=== PATIENT | female | born 2000 | race Caucasian/White ===

== ENCOUNTER 2021-01-28 20:22 | Emergency (ER) | payer OTHER, SELFPAY ==
--- NOTE | 2021-01-28 22:39 | EDPHYS ---
Physician Documentation [facility] Name: Arleth Crowley Age: 20 yrs Sex: Female : 2000 Arrival Date: 01/28/2021 Time: 20:25 Bed DX1 Private MD: ED Physician Norm Marr HPI: 01/28 22:32 This 20 yrs old Female presents to ER via Ambulatory with complaints of mh7 Allergic Reaction, Rash. 22:32 The patient presents with itching, rash, of the right arm, left arm, right leg and left mh7 leg. Onset: The symptoms/episode began/occurred 1 week(s) ago. Associated signs and symptoms: Pertinent positives: rash, Pertinent negatives: abdominal pain, Altered mental status chest pain, dysphagia, fever, headache, hives, Light headed nausea, shortness of breath, swelling, Syncope vomiting. Possible causes: poison kay. At home the patient or guardian has treated the symptoms with Claritin, topical steroids. Severity of symptoms: At their worst the symptoms were mild 3 day(s) ago, in the emergency department the symptoms are unchanged. 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 - Social history:: Smoking status: Patient denies any tobacco usage or history of. ROS: 22:32 Constitutional: Negative for fever, chills, and weight loss, Eyes: Negative for injury, mh7 pain, redness, and discharge, ENT: Negative for injury, pain, and discharge, Neck: Negative for injury, pain, and swelling, Cardiovascular: Negative for chest pain, palpitations, and edema, Respiratory: Negative for shortness of breath, cough, wheezing, and pleuritic chest pain, Abdomen/GI: Negative for abdominal pain, nausea, vomiting, diarrhea, and constipation, Back: Negative for injury and pain, : Negative for injury, bleeding, discharge, and swelling, MS/Extremity: Negative for injury and deformity. 22:32 Neuro: Negative for headache, weakness, numbness, tingling, and seizure, Psych: Negative for depression, anxiety, suicide ideation, homicidal ideation, and hallucinations, Allergy/Immunology: Negative for hives, rash, and allergies, Endocrine: Negative for neck swelling, polydipsia, polyuria, polyphagia, and marked weight changes, Hematologic/Lymphatic: Negative for swollen nodes, abnormal bleeding, and unusual bruising. 22:32 Skin: Exam: 22:32 Constitutional: This is a well developed, well nourished patient who is awake, alert, mh7 and in no acute distress. Head/Face: Normocephalic, atraumatic. Eyes: Pupils equal round and reactive to light, extra-ocular motions intact. Lids and lashes normal. Conjunctiva and sclera are non-icteric and not injected. Cornea within normal limits. Periorbital areas with no swelling, redness, or edema. Neck: Trachea midline, no thyromegaly or masses palpated, and no cervical lymphadenopathy. Supple, full range of motion without nuchal rigidity, or vertebral point tenderness. No Meningismus. Chest/axilla: Normal chest wall appearance and motion. Nontender with no deformity. No lesions are appreciated. Cardiovascular: Regular rate and rhythm with a normal S1 and S2. No gallops, murmurs, or rubs. Normal PMI, no JVD. No pulse deficits. Respiratory: Lungs have equal breath sounds bilaterally, clear to auscultation and percussion. No rales, rhonchi or wheezes noted. No increased work of breathing, no retractions or nasal flaring. Abdomen/GI: Soft, non-tender, with normal bowel sounds. No distension or tympany. No guarding or rebound. No evidence of tenderness throughout. Back: No spinal tenderness. No costovertebral tenderness. Full range of motion. 22:32 MS/ Extremity: Pulses equal, no cyanosis. Neurovascular intact. Full, normal range of motion. Neuro: Awake and alert, GCS 15, oriented to person, place, time, and situation. Cranial nerves II-XII grossly intact. Motor strength 5/5 in all extremities. Sensory grossly intact. Cerebellar exam normal. Normal gait. Psych: Awake, alert, with orientation to person, place and time. Behavior, mood, and affect are within normal limits. 22:32 Skin: rash a mild rash is noted, rash can be described as contact dermatitis, on the right arm, left arm, right leg and left leg. Vital Signs: 20:48 BP 146 / 57; Pulse 98; Resp 20; Temp 99.1(TE); Pulse Ox 100% on R/A; Weight 93.89 kg kg (R); Height 5 ft. 5 in. (165.10 cm) (R); Pain 1/10; 22:39 BP 132 / 65; Pulse 80; Resp 17; Temp 98.9; Pulse Ox 100% on R/A; ch4 20:48 Body Mass Index 34.45 (93.89 kg, 165.10 cm) kg MDM: 22:32 Differential diagnosis: non IgE mediated drug reaction urticaria, Contact dermatitis, mh7 pruritus, poison kay, poison oak. Data reviewed: vital signs, nurses notes. Data interpreted: Pulse oximetry: on room air is 100 %. Interpretation: normal. 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 Response to treatment: the patient's symptoms have mildly improved after treatment. 22:39 Patient medically screened. [facility] Administered Medications: 22:31 Drug: predniSONE 60 mg Route: PO; ch4 22:31 Drug: Pepcid (famotidine) 20 mg Route: PO; ch4 Disposition Summary: 01/28/21 22:39 Discharge Ordered Location: Home [facility] Problem: new 7 Symptoms: have improved mh7 Condition: Stable mh7 Diagnosis - Unspecified contact dermatitis due to plants, except food mh7 Followup: mh7 - With: Private Physician - When: 1 - 2 days - Reason: Worsening of condition, Recheck today's complaints, Continuance of care, Re-evaluation by your physician Followup: 7 - With: Omar Roach MD - When: 1 - 2 days - Reason: Worsening of condition, Recheck today's complaints Discharge Instructions: - Discharge Summary Sheet 7 - Poison Kay Dermatitis, [id number] mh7 - Contact Dermatitis, [id number] [facility] Forms: - Medication Reconciliation Form [facility] - Thank You Letter [facility] - Antibiotic Education [facility] - Prescription Opioid Use [facility] Prescriptions: - Pepcid 20 mg Oral Tablet - take 1 tablet by ORAL route every 12 hours for 5 days; 10 tablet; Refills: 0, [facility] Product Selection Permitted - Prednisone 20 mg Oral Tablet - take 2 tablets by ORAL route once daily for 5 days; 10 tablet; Refills: 0, [facility] Product Selection Permitted Signatures: Norm Marr MD MD 7 Destiny Castorena, RN RN kg Barbara Obrien, RONEN RN ch4
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
[2021-01-28] MEDS ORDERED: FAMOTIDINE 20 MG TAB ONE (22:56)
[2021-01-28] MEDS ORDERED: predniSONE 20 MG TAB ONE (22:56)
[2021-01-29 00:34] VITALS: O2SAT 100
[2021-01-29 00:35] VITALS: BP 132/65; TEMP 98.9
== END 2021-01-28 22:45 | disposition home or self-care (01) ==
LOC: ER 20:22
DX: L25.5 Unspecified contact dermatitis due to plants, except food (principal)
CPT/HCPCS: 99283; J7512

== ENCOUNTER 2022-09-20 18:11 | Emergency (ER) | payer OTHER ==
--- NOTE | 2022-09-20 18:34 | ER ---
Nurse's Notes [facility] Name: Arleth Crowley Age: 22 yrs Sex: Female : 2000 Arrival Date: 09/20/2022 Time: 18:11 Bed IW1 Private MD: Diagnosis: Other acute conjunctivitis Presentation: 09/20 18:28 Chief complaint: Patient states: Eyes feeling irritated/itching since monday. nj1 Coronavirus screen: Vaccine status: Patient reports being unvaccinated. Ebola Screen: Patient denies travel to an Ebola-affected area in the 21 days before illness onset. Initial Sepsis Screen: Does the patient meet any 2 criteria?. Initial Sepsis Screen: Does the patient have a suspected source of infection? No. Patient's initial sepsis screen is negative. Risk Assessment: Do you want to hurt yourself or someone else? Patient reports no desire to harm self or others. Onset of symptoms was September 16, 2022. 18:28 Method Of Arrival: Ambulatory [facility] 18:28 Acuity: BEATRIZ 5 nj1 Triage Assessment: 18:30 General: Appears in no apparent distress. comfortable, Behavior is calm, cooperative, nj1 appropriate for age. 18:30 Pain: Denies pain. EENT: Sclera/Cornea are reddened in outer aspect of conjuctiva of nj1 right eye, inner aspect of conjuctiva of right eye, outer aspect of conjuctiva of left eye and inner aspect of conjunctiva of left eye Denies Vision problems. Neuro: Level of Consciousness is awake, alert, obeys commands, Oriented to person, place, time, situation. Cardiovascular: Patient's skin is warm and dry. Respiratory: Airway is patent Respiratory effort is even, unlabored, labored. Historical: - Allergies: 18:32 No Known Allergies; nj1 - PMHx: 18:32 None; nj1 - PSHx: 18:32 section; nj1 - Immunization history:: Client reports having NOT received the Covid vaccine. - Social history:: Smoking status: Patient denies any tobacco usage or history of. Vital Signs: 18:28 BP 146 / 86; Pulse 88; Resp 16; Pulse Ox 100% on R/A; Weight 92.99 kg; Height 5 ft. 5 nj1 in. ; Pain 5/10; 18:28 Body Mass Index 34.11 (92.99 kg, 165.1 cm) [facility] 18:28 Pain Scale: Adult [facility] ED Course: 18:21 Patient arrived in ED. [facility] 18:25 Everardo Morales PA is PHCP. [facility] 18:25 Genaro Brumfield DO is Attending Physician. [facility] 18:32 Triage completed. nv1 18:33 Arm band placed on left wrist. [facility] 18:34 Jose De La Vega MD is Referral Physician. [facility] 18:50 Patient did not have IV access during this emergency room visit. [facility] Administered Medications: No medications were administered Outcome: 18:34 Discharge ordered by . [facility] 18:50 Discharged to home ambulatory. [facility] 18:50 Condition: stable 18:50 Discharge instructions given to patient, Instructed on discharge instructions, follow up and referral plans. medication usage, Demonstrated understanding of instructions, follow-up care, medications, Prescriptions given X 1. 19:07 Patient left the ED. [facility] Signatures: Everardo Morales PA PA [facility] Funmilayo Moe [facility] Mary Kate Sma, RN RN [facility] Corrections: (The following items were deleted from the chart) 18:33 18:28 Pulse 88bpm; Resp 16bpm; Pulse Ox 100% RA; 92.99 kg; Height 5 ft. 5 in.; BMI: [facility] 34.1; Pain 5/10, Adult; [facility]
--- NOTE | 2022-09-20 18:35 | EDPHYS ---
Physician Documentation [facility] Name: Arleth Crowley Age: 22 yrs Sex: Female : 2000 Arrival Date: 09/20/2022 Time: 18:11 Bed IW1 Private MD: ED Physician Genaro Brumfield HPI: 09/20 18:31 This 22 yrs old Female presents to ER via Unassigned with complaints of Eye Problem. jmm 18:31 Onset: The symptoms/episode began/occurred gradually, 1 week(s) ago. Duration: the [facility] symptoms are continuous. Aggravated by nothing. Alleviated by nothing. This is a 22 year old female with no chronic medical conditions that presents to the ED with complaints of bilateral eye irritation and drainage. Began in the left eye and spread to the right. . Historical: - Allergies: 18:32 No Known Allergies; nj1 - PMHx: 18:32 None; nj1 - PSHx: 18:32 section; nj1 - Immunization history:: Client reports having NOT received the Covid vaccine. - Social history:: Smoking status: Patient denies any tobacco usage or history of. ROS: 18:31 Constitutional: Negative for fever, chills, and weight loss. jmm 18:31 ENT: Negative for injury, pain, and discharge, Neck: Negative for injury, pain, and swelling, Cardiovascular: Negative for chest pain, palpitations, and edema, Respiratory: Negative for shortness of breath, cough, wheezing, and pleuritic chest pain, Abdomen/GI: Negative for abdominal pain, nausea, vomiting, diarrhea, and constipation, Back: Negative for injury and pain, Skin: Negative for injury, rash, and discoloration, Neuro: Negative for headache, weakness, numbness, tingling, and seizure. 18:31 Eyes: Positive for discharge, itching, redness, tearing, Negative for vision loss, visual disturbance. 18:31 All other systems are negative. Exam: 18:31 Constitutional: This is a well developed, well nourished patient who is awake, alert, jmm and in no acute distress. Head/Face: atraumatic. 18:31 ENT: Moist Mucus Membranes Neck: Trachea midline, Supple Chest/axilla: Normal chest wall appearance and motion. Cardiovascular: Regular rate and rhythm. No edema appreciated Respiratory: Normal respirations, no respiratory distress appreciated Abdomen/GI: Non distended Back: Normal ROM Skin: General appearance color normal 18:31 Eyes: Conjunctiva: injected, bilaterally. 18:31 Musculoskeletal/extremity: ROM: intact in all extremities. 18:31 Skin: Appearance: Color: normal in color. 18:31 Neuro: Orientation: is normal, Mentation: is normal, Memory: is normal. 18:31 Psych: Behavior/mood is pleasant, cooperative. Vital Signs: 18:28 BP 146 / 86; Pulse 88; Resp 16; Pulse Ox 100% on R/A; Weight 92.99 kg; Height 5 ft. 5 nj1 in. ; Pain 5/10; 18:28 Body Mass Index 34.11 (92.99 kg, 165.1 cm) banner 18:28 Pain Scale: Adult nj1 MDM: 18:27 Patient medically screened. [facility] 18:33 Differential diagnosis: Data reviewed: vital signs, nurses notes. Counseling: I had a [facility] detailed discussion with the patient and/or guardian regarding: the historical points, exam findings, and any diagnostic results supporting the discharge/admit diagnosis, the need for outpatient follow up, to return to the emergency department if symptoms worsen or persist or if there are any questions or concerns that arise at home. Administered Medications: No medications were administered Disposition: 20:31 Co-signature as Attending Physician, Genaro Brumfield DO I was immediately available on-site ms3 in the Emergency Department for consultation in the care of the patient. Disposition Summary: 09/20/22 18:34 Discharge Ordered Location: Home [facility] Condition: Stable [facility] Diagnosis - Other acute conjunctivitis [facility] Followup: [facility] - With: Jose De La Vega MD - When: 2 - 3 days - Reason: Recheck today's complaints, Continuance of care, Re-evaluation by your physician Discharge Instructions: - Discharge Summary Sheet [facility] - Bacterial Conjunctivitis, Adult [facility] Forms: - Medication Reconciliation Form [facility] - Thank You Letter [facility] - Antibiotic Education [facility] - Prescription Opioid Use [facility] Prescriptions: - Erythromycin 5 mg/gram (0.5 %) Ophthalmic Ointment - apply 1 centimeter by OPHTHALMIC route 2-3 times daily for 7 days; 1 unit; [facility] Refills: 0, Product Selection Permitted Signatures: Everardo Morales PA PA jmm Sims, Marcus DO DO ms3 Mary Kate Sam, RN RN nj1
[2022-09-20 19:11] VITALS: BP 146/86; O2SAT 100
== END 2022-09-20 19:07 | disposition home or self-care (01) ==
LOC: ER 18:11
DX: H10.33 Unspecified acute conjunctivitis, bilateral (principal)
CPT/HCPCS: 99283

== ENCOUNTER 2025-02-10 16:58 | Emergency (ER) | payer OTHER, SELFPAY ==
[2025-02-10] MEDS ORDERED: KETOROLAC 30 MG/ML INJ ONE (17:12)
[2025-02-10] MEDS ORDERED: DIPHENHYDRAMINE 50 MG/ML VIAL ONE (17:12)
[2025-02-10] MEDS ORDERED: METOCLOPRAMIDE 10 MG/2mL INJ ONE (17:12)
[2025-02-10] MEDS ORDERED: NA CHLORIDE 0.9% 1,000 ML ONE (17:13)
[2025-02-10 18:56] LABS: Absolute Lymphocytes (CBC) 1.4 K/uL (0.7-4.9); Hematocrit 43.0 % (36.0-45.0); Hemoglobin 14.5 g/dL (12.0-15.0); MCH 28.9 pg (27.0-35.0); MCHC 33.6 g/dL (32.0-36.0); MCV 85.8 fL (80-100); MPV 9.1 fL (7.6-11.3); Nucleated RBC Absolute Count 0.0 (0-0); Nucleated Red Blood Cells % 0.0 % (0-0); RBC Red Blood Cell Count 5.01 M/uL (3.86-4.86); White Blood Count 14.00 thou/uL (4.3-10.9)
[2025-02-10 19:10] LABS: Anion Gap 7.9 mEq/L (5.0-15.0); BUN Blood Urea Nitrogen 7.0 mg/dL (7-18); Glucose Level 95.0 mg/dL (74-106); Potassium 3.9 mEq/L (3.5-5.1)
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
--- NOTE | 2025-02-10 19:45 | ER ---
Nurse's Notes [facility] Name: Arleth Crowely Age: 24 yrs Sex: Female : 2000 Arrival Date: 02/10/2025 Time: 16:58 Bed 16 Private MD: Diagnosis: Nausea with vomiting, unspecified;Headache Presentation: 02/10 17:07 Chief complaint: Patient states: migraine started this morning then started having me1 abdominal cramps and n/v. Abd pain is relieved by vomiting. RIOS pain level is 8/10. Coronavirus screen: Vaccine status: Patient reports being unvaccinated. Ebola Screen: No symptoms or risks identified at this time. Initial Sepsis Screen: Does the patient meet any 2 criteria? No. Patient's initial sepsis screen is negative. Does the patient have a suspected source of infection? No. Patient's initial sepsis screen is negative. Risk Assessment: Do you want to hurt yourself or someone else? Patient reports no desire to harm self or others. Onset of symptoms was February 10, 2025 at 09:30. 17:07 Method Of Arrival: Ambulatory [facility] [place] 17:07 Acuity: BEATRIZ 3 me1 CAN PATCHER: 20:07 Not kj2 Historical: - Allergies: 17:09 No Known Allergies; me1 - PMHx: 17:09 None; me1 - PSHx: 17:09 section; me1 - Immunization history:: Adult Immunizations up to date. - Infectious Disease History:: Denies. - Social history:: Smoking status: Reported history of juuling and/or vaping. Screenin:45 [facility] ED Fall Risk Assessment (Adult) History of falling in the last 3 months, kj2 including since admission No falls in past 3 months (0 pts) Confusion or Disorientation No (0 pts) Intoxicated or Sedated No (0 pts) Impaired Gait No (0 pts) Mobility Assist Device Used No (0 pt) Altered Elimination No (0 pt) Score/Fall Risk Level 0 - 2 = Low Risk Maintained a safe environment, Hourly rounding (assess needs \T\ fall precautionary measures) done. Abuse screen: Denies threats or abuse. Denies injuries from another. Nutritional screening: No deficits noted. Tuberculosis screening: No symptoms or risk factors identified. Assessment: 17:45 General: Appears in no apparent distress. Behavior is calm, cooperative. Pain: kj2 Complains of pain in abdomen Pain currently is 5 out of 10 on a pain scale. Neuro: Level of Consciousness is awake, alert, obeys commands, Oriented to person, place, time, situation. Cardiovascular: Patient's skin is warm and dry. Respiratory: Airway is patent Respiratory effort is unlabored. : No signs and/or symptoms were reported regarding the genitourinary system. 18:45 Reassessment: Patient appears in no apparent distress at this time. Patient and/or kj2 family updated on plan of care and expected duration. Pain level reassessed. Patient is alert, oriented x 3, equal unlabored respirations, skin warm/dry/pink. 18:50 GI: Bowel sounds present X 4 quads. Abd is non tender X 4 quads. kj2 19:50 Reassessment: Patient appears in no apparent distress at this time. Patient and/or kj2 family updated on plan of care and expected duration. Pain level reassessed. Patient is alert, oriented x 3, equal unlabored respirations, skin warm/dry/pink. Vital Signs: 17:07 BP 141 / 71; Pulse 76; Resp 18; Temp 98; Pulse Ox 100% ; Weight 83.91 kg; Height 5 ft. me1 6 in. ; Pain 8/10; 18:00 BP 120 / 64; Pulse 60; Resp 20; Pulse Ox 99% ; kj2 19:00 BP 119 / 62; Pulse 60; Resp 18; Pulse Ox 98% on R/A; kj2 19:50 BP 121 / 66; Pulse 62; Resp 20; Temp 98; Pulse Ox 100% ; kj2 17:07 Body Mass Index 29.86 (83.91 kg, 167.64 cm) me1 17:07 Pain Scale: Adult tn1 ED Course: 17:02 Patient arrived in ED. al6 17:02 Michelle James PA-C is [facility]. sb4 17:02 Floresita Pratt MD is Attending Physician. sb4 17:09 Daya Sharp, RONEN is Primary Nurse. kj2 17:09 Triage completed. me1 17:09 Arm band placed on Patient placed in an exam room. me1 17:35 Inserted saline lock: 22 gauge in right forearm, using aseptic technique. Flushed with ar8 10 mL NS. 17:45 Patient has correct armband on for positive identification. Bed in low position. Call kj2 light in reach. Provided Education on: call light. 20:07 No provider procedures requiring assistance completed. kj2 20:08 IV discontinued, intact, bleeding controlled, No redness/swelling at site. Pressure kj2 dressing applied. Administered Medications: 17:35 Drug: NS 0.9% IV 1000 ml IV at 1 bolus Per protocol; to be given as a bolus over 60 ar8 minutes Route: IV; Rate: 1 bolus; Site: right forearm; 19:57 Follow up: IV Status: Completed infusion; IV Intake: 1000ml kj2 17:36 Drug: metoCLOPramide IVP 10 mg IVP once; over 1 to 2 minutes Route: IVP; Site: right ar8 forearm; 19:56 Follow up: Response: No adverse reaction kj2 17:40 Drug: diphenhydrAMINE IVP 25 mg IVP once Route: IVP; Site: right forearm; ar8 19:57 Follow up: Response: No adverse reaction kj2 17:43 Drug: Ketorolac IVP 15 mg IVP once Route: IVP; Site: right forearm; ar8 19:57 Follow up: Response: No adverse reaction kj2 Medication: 20:07 VIS not applicable for this client. kj2 Intake: 19:57 IV: 1000ml; Total: 1000ml. kj2 Outcome: 19:44 Discharge ordered by . sb4 20:08 Discharged to home ambulatory, kj2 20:08 Condition: stable 20:08 Discharge instructions given to patient, Instructed on discharge instructions, follow up and referral plans. Demonstrated understanding of instructions, follow-up care, 20:08 Patient left the ED. kj2 Signatures: Michelle James, PA-C PA-C sb4 Lisandra Alamraz RN RN me1 Daya Sharp RN RN kj2 Galina Whittaker Andrea, RN RN ar8 Corrections: (The following items were deleted from the chart) 17:10 17:09 PMHx: Unable to Obtain; me1 me1
[2025-02-10 20:26] LABS: Influenza A Ag Negative; Influenza B Ag Negative; SARS-CoV-2 Antigen Rapid Res Negative (Negative)
== END 2025-02-10 20:08 | disposition home or self-care (01) ==
LOC: ER 16:58
DX: R51.9 Headache, unspecified (principal); R11.2 Nausea with vomiting, unspecified; R10.9 Unspecified abdominal pain; Z11.52 Encounter for screening for COVID-19
CPT/HCPCS: 36415; 80048; 84703; 85025; 87428; 96361; 96374; 96375; 99284; J1200; J1885; J2765; J7030